=== PATIENT | female | born 1960 | race American Indian/Alaskan Native ===

== ENCOUNTER 2017-11-04 13:21 | Emergency (ER) | payer OTHER ==
[2017-11-04 13:41] VITALS: PULSE 93; RESP 16; TEMP 97; O2SAT 98
[2017-11-04 14:29] VITALS: BP 125/65
--- NOTE | 2017-11-04 15:02 | ED PDOC ---
Lower Extremity Pain/Injury Time Seen by Provider: 11/04/17 13:48 Chief Complaint (Nursing): Lower Extremity Problem/Injury Chief Complaint (Provider): Foot injury, would like to return to work. History Per: Patient History/Exam Limitations: no limitations Onset/Duration Of Symptoms: Days Current Symptoms Are (Timing): Still Present Additional Complaint(s): Pt was seen middle of August for evaluation of left foot injury after trip and fall. Pt seen under MR [id number]. XR normal. Pt states she needs a note to return to work. Pt states she has not been taking her BP medications because she ran out of the prescription she was given at previous visit in August. Pt states she does not have a PMD. Past Medical History Reviewed: Historical Data, Nursing Documentation, Vital Signs Vital Signs: Last Vital Signs Temp 97 F L 11/04/17 13:36 Pulse 93 H 11/04/17 13:36 Resp 16 11/04/17 13:36 BP 125/65 11/04/17 14:13 Pulse Ox 98 11/04/17 13:36 - Medical History PMH: Asthma, HTN - Surgical History Surgical History: No Surg Hx - Family History Family History: States: No Known Family Hx - Home Medications Home Medications: Ambulatory Orders Medication Instructions Recorded Enalapril/Hydrochlorothiazide 1 each PO DAILY #30 tablet 11/04/17 [Enalapril-Hctz 10-25 mg Tablet] amLODIPine [Norvasc] 10 mg PO DAILY #30 tab 11/04/17 - Allergies Allergies/Adverse Reactions: Allergies Allergy/AdvReac Type Severity Reaction Status Date / Time No Known Allergies Allergy Verified 11/04/17 13:36 Review of Systems ROS Statement: Except As Marked, All Systems Reviewed And Found Negative Constitutional: Negative for: Fever, Chills Musculoskeletal: Positive for: Foot Pain Skin: Negative for: Rash, Lesions, Jaundice Neurological: Negative for: Weakness Physical Exam - Reviewed Nursing Documentation Reviewed: Yes Vital Signs Reviewed: Yes - Physical Exam Appears: Positive for: Well, Non-toxic, No Acute Distress Head Exam: Positive for: ATRAUMATIC, NORMAL INSPECTION, NORMOCEPHALIC Skin: Positive for: Normal Color, Warm, DRY Eye Exam: Positive for: Normal appearance ENT: Positive for: Normal ENT Inspection Neck: Positive for: Normal Cardiovascular/Chest: Positive for: Regular Rate, Rhythm Respiratory: Positive for: Normal Breath Sounds. Negative for: Accessory Muscle Use, Respiratory Distress Back: Positive for: Normal Inspection Extremity: Positive for: Normal ROM Neurologic/Psych: Positive for: Alert, Oriented - ECG O2 Sat by Pulse Oximetry: 98 Pulse Ox Interpretation: Normal Medical Decision Making Medical Decision Making: BP 221/145 Pt does not want to stay in the ER for further evaluation of BP. Discussed HTN and complications including [place], stroke, kidney failure and . PT demonstrates understanding. Disposition - Clinical Impression Clinical Impression: Hypertension, Foot pain - Patient ED Disposition Is Patient to be Admitted: No - Disposition Disposition: Against Medical Advice Disposition Time: 15:08 Condition: FAIR Prescriptions: amLODIPine [Norvasc] 10 mg PO DAILY #30 tab Enalapril/Hydrochlorothiazide [Enalapril-Hctz 10-25 mg Tablet] 1 each PO DAILY # 30 tablet Instructions: High Blood Pressure (DC) Forms: [employer] [facility] ([place])
== END 2017-11-04 15:37 | disposition left against medical advice (07) ==
LOC: H.ER 13:21
DX: M79.672 Pain in left foot (principal); I10 Essential (primary) hypertension

== ENCOUNTER 2018-04-29 06:35 | Emergency (ER) | payer OTHER ==
[2018-04-29 06:53] VITALS: RESP 18; TEMP 97.9
[2018-04-29 07:16] VITALS: BP 111/89; PULSE 76; O2SAT 98
--- NOTE | 2018-04-29 08:38 | CARD ---
APPROVED REPORT Date of service: 04/29/2018 EKG Measurement Heart [id number] <Conclusion> Normal sinus rhythm Left atrial enlargement Left ventricular hypertrophy with repolarization abnormality Abnormal ECG
--- NOTE | 2018-04-29 08:53 | ED PDOC ---
Upper Extremity Pain/Injury Time Seen by Provider: 04/29/18 07:21 Chief Complaint (Nursing): Upper Extremity Problem/Injury Chief Complaint (Provider): Upper Extremity Problem/Injury History Per: Patient History/Exam Limitations: no limitations Onset/Duration Of Symptoms: Days (x14) Additional Complaint(s): 58 years old female with a history of hypertension and asthma presents to ER for evaluation of right shoulder pain s/p a fall onset two weeks ago. Patient reports she fell on her right shoulder while mopping the floor. She states she went to see a doctor where she believes she had an x-ray of the shoulder. Patient reports taking some OTC medicine and states pain comes and goes. She states pain worsens with movement. Patient denies head injury, syncope and chest pain. PMD: None provided Past Medical History Vital Signs: Last Vital Signs Temp 97.9 F 04/29/18 06:48 Pulse 76 04/29/18 07:16 Resp 18 04/29/18 07:16 BP 111/89 04/29/18 07:16 Pulse Ox 98 04/29/18 07:16 - Medical History PMH: Asthma, HTN - Surgical History Surgical History: No Surg Hx - Family History Family History: States: Unknown Family Hx - Social History Current smoker - smoking cessation education provided: Yes Alcohol: Social Drugs: Denies - Home Medications Home Medications: Ambulatory Orders Medication Instructions Recorded Enalapril/Hydrochlorothiazide 1 each PO DAILY #30 tablet 11/04/17 [Enalapril-Hctz 10-25 mg Tablet] amLODIPine [Norvasc] 10 mg PO DAILY #30 tab 11/04/17 - Allergies Allergies/Adverse Reactions: Allergies Allergy/AdvReac Type Severity Reaction Status Date / Time No Known Allergies Allergy Verified 11/04/17 13:36 Review of Systems ROS Statement: Except As Marked, All Systems Reviewed And Found Negative Constitutional: Negative for: Other (Head injury) Cardiovascular: Negative for: Chest Pain Musculoskeletal: Positive for: Shoulder Pain (Right) Neurological: Negative for: Other (Syncope) Physical Exam - Reviewed Nursing Documentation Reviewed: Yes Vital Signs Reviewed: Yes - Physical Exam Appears: Positive for: Well, No Acute Distress Head Exam: Positive for: ATRAUMATIC, NORMOCEPHALIC Skin: Positive for: Normal Color, Warm, Dry Eye Exam: Positive for: Normal appearance, EOMI, PERRL Neck: Positive for: Normal, Painless ROM, Supple Cardiovascular/Chest: Positive for: Regular Rate, Rhythm. Negative for: Murmur Respiratory: Positive for: Normal Breath Sounds. Negative for: Respiratory Distress Gastrointestinal/Abdominal: Positive for: Normal Exam, Soft. Negative for: Tenderness Back: Positive for: Normal Inspection. Negative for: L CVA Tenderness, R CVA Tenderness Extremity: Positive for: Other (Limited ROM on elevation of right shoulder). Negative for: Tenderness (of right shoulder), Deformity (of right shoulder), Swelling (or redness of right shoulder) Neurologic/Psych: Positive for: Alert, Oriented (x3), Gait (Steady) - ECG O2 Sat by Pulse Oximetry: 98 (RA) Pulse Ox Interpretation: Normal - Progress Re-evaluation Time: :59 Condition: Re-examined, Improved Medical Decision Making Medical Decision Making: Time: 803 Initial impression: Right shoulder pain due to injury. Rule out fracture. Possible rotator cuff injury. Initial plan: --EKG --BMP --Troponin --CBC --Toradol 30 mg IM --Flexeril 10 mg PO Scribe Attestation: Documented by Brandie Cavanaugh, acting as a scribe for Bernadette Arreola MD. Provider Scribe Attestation: All medical record entries made by the Scribe were at my direction and personally dictated by me. I have reviewed the chart and agree that the record accurately reflects my personal performance of the history, physical exam, medical decision making, and the department course for this patient. I have also personally directed, reviewed, and agree with the discharge instructions and disposition. Disposition - Clinical Impression Clinical Impression: Shoulder injury, Shoulder pain - Patient ED Disposition Is Patient to be Admitted: No Doctor Will See Patient In The: Office Counseled Patient/Family Regarding: Studies Performed, Diagnosis, Need For Followup - Disposition Referrals: Ronny Estrella MD [Staff Provider] - Disposition: Routine/Home Disposition Time: :59 Condition: GOOD Additional Instructions: MÓNICA HAGEN, thank you for letting us take care of you today. Your provider was Bernadette Arreola MD and you were treated for RIGHT ARM PAIN. The emergency medical care you received today was directed at your acute symptoms. If you were prescribed any medication, please fill it and take as directed. It may take several days for your symptoms to resolve. Return to the Emergency Department if your symptoms worsen, do not improve, or if you have any other problems. Please contact your doctor or call one of the physicians/clinics you have been referred to that are listed on the Patient Visit Information form that is included in your discharge packet. Bring any paperwork you were given at discharge with you along with any medications you are taking to your follow up visit. Our treatment cannot replace ongoing medical care by a primary care provider outside of the emergency department. Thank you for allowing the [facility] team to be part of your care today. If you had an X-Ray or CT scan: A Radiologist will review the ED reading if any change in treatment is needed we will contact you. If you had a blood, urine, or wound culture: It will take several days for the results, if any change in treatment is needed we will contact you. If you had an STI test: It will take 48 hours for the results. Please call after 1 week if you have not heard back. Instructions: Shoulder Pain (DC), Rotator Cuff Injury
--- NOTE | 2018-04-29 16:18 | RAD ---
Date of service: 04/29/2018 PROCEDURE: Radiographs of the Right Shoulder HISTORY: shoulder pain injury 2 weeks COMPARISON: No prior. FINDINGS: BONES: No acute fracture or destructive bony lesion identified. JOINTS: No subluxation or dislocation degenerative cortical sclerosis appreciate related to the acromioclavicular and glenohumeral joints. SOFT TISSUES: Normal. OTHER FINDINGS: None. IMPRESSION: Degenerative joint disease. No acute fracture or dislocation identified.
== END 2018-04-29 10:18 | disposition home or self-care (01) ==
LOC: H.ER 06:35
DX: S49.91XA Unspecified injury of right shoulder and upper arm, initial encounter (principal); W19.XXXA Unspecified fall, initial encounter; Y92.89 Other specified places as the place of occurrence of the external cause; I11.9 Hypertensive heart disease without heart failure; Z79.899 Other long term (current) drug therapy